=== PATIENT | female | born 1990 | race African-American/Black ===

== ENCOUNTER 2023-01-18 09:49 | Emergency (ER) | payer OTHER ==
[2023-01-18 09:54] VITALS: BP 138/93; RESP 18; TEMP 97.6
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
[2023-01-18 10:21] VITALS: PULSE 98
== END 2023-01-18 10:24 | disposition home or self-care (01) ==
LOC: EC 09:49
DX: Z02.89 Encounter for other administrative examinations; O99.512 Diseases of the respiratory system complicating pregnancy, second trimester; J45.909 Unspecified asthma, uncomplicated; O99.332 Smoking (tobacco) complicating pregnancy, second trimester; F17.200 Nicotine dependence, unspecified, uncomplicated; Z3A.25 25 weeks gestation of pregnancy
CPT/HCPCS: 99283